=== PATIENT | female | born 1975 | race Hispanic/Latino ===

== ENCOUNTER 2021-03-12 10:27 | Emergency (ER) | payer BC ==
--- OUTSIDE RECORDS SUMMARY | 2021-03-12 10:31 | XMS REPORT | Continuity of Care Document ---
:1975 Author Organization [facility] t Address [address] [place] [address] Dr. Aquino [address] [place] [address] Care Team Providers Name Role Phone Doctor Unassigned, [place] Attending Clinician Unavailable José Luis ANN Attending Clinician Problems This patient has no known problems. Allergies, Adverse Reactions, Alerts This patient has no known allergies or adverse reactions. Medications Ordered Filled Start Stop Current Ordering Indication Dosage Frequency Signature Comments Components Source Medication Medication Date Date Medication? Clinician (SIG) Name Name Macrobid Macrobid 2019-0 2020- No Jerry [address] 08-[facility]20 [facility] Tretinoin Tretinoin Yes Jerry [address] [facility] to [facility] affected l area in Outpati the ent evening to Clinics face Lisinopril Lisinopril Yes Jerry [address] [facility] Lipitor Lipitor Yes Jerry [address] [facility] GlipiZIDE GlipiZIDE Yes Jerry [address] [facility] ER ER [facility] with [facility] - breakfast [facility] MetFORMIN MetFORMIN Yes Jerry [address] [facility] HCl ER HCl ER [facility] Levothyroxi Levothyroxi Yes Jerry take 1/[address] [facility] ne Sodium ne Sodium [facility] tablet on [facility] - an empty [facility] stomach [facility] MetFORMIN MetFORMIN Yes Jerry [address] [facility] [address] HCl ER HCl ER [facility] Procedures This patient has no known procedures. Encounters Start End Encounter Admission Attending Care Care Encounter Source Date/Time Date/Time Type Type Clinicians Facility Department ID 2021-02-28 2021-02-[address] [facility] [id number] [facility] 2021-02-18 2021-02-[address] [facility] [id number] [facility] 2021-02-13 2021-02-13 Orders Doctor RAMOS [id number] 00:00:00 00:00:00 Only Unassigned, SEAN [id number] [place] [id number] 2021-01-21 2021-01-21 [facility] Anne Marie Ordonez RUST [id number] 09:32:04 23:59:00 Encounter [place] [id number] [place] [id number] [place] [id number] 2021-01-21 2021-01-21 [facility] Anne Marie Ordonez RUST [id number] 09:31:41 09:31:41 Encounter [place] [id number] [place] [id number] [place] [id number] 2020-11-14 2020-11-14 [facility] Anne Marie Ordonez RUST [id number] 09:45:40 23:59:00 Encounter [place] [id number] [place] [id number] [place] [id number] 2020-11-14 2020-11-14 Orders Doctor RAMOS [id number] 00:00:00 00:00:00 Only Unassigned, SEAN [id number] [place] [facility] [id number] 2020-11-13 2020-11-[address] [facility] [id number] [facility]00 [facility] 2020-10-20 2020-10-20 Case Anne Marie Ordonez RUST [id number] 00:00:00 00:00:00 Management [place] [id number] [place] [id number] [place] [id number] [address] 2020-08-13 2020-08-13 [facility] [id number] 10:20:00 10:20:00 t [employer] [facility] Medicine Outpati ent Clinics 2020-05-08 2020-05-08 [facility] [id number] 10:00:00 10:00:00 t Haswell [employer] [facility] Medicine Outpati ent Clinics 2020-05-02 2020-05-02 [facility] [id number] 11:42:00 11:42:00 t Dada s Myagi [facility] Medicine Outpati ent Clinics 2020-01-30 2020-01-30 [facility] [id number] 09:30:00 09:30:00 t Dada s [employer] [facility] Medicine Outpati ent Clinics 2019-10-18 2019-10-18 [facility] [id number] 09:15:00 09:15:00 t Haswell [employer] [facility] Medicine Outpati ent Clinics 2019-09-22 2019-09-22 [facility] [id number] 15:42:00 15:42:00 t Dada s Myagi [facility] Medicine Outpati ent Clinics 2019-09-19 2019-09-19 [facility] [id number] 11:39:00 11:39:00 t Dada s Myagi [facility] Medicine Outpati ent Clinics 2019-06-22 2019-06-22 [facility] [id number] 09:00:00 09:00:00 t Haswell [employer] [facility] Medicine Outpati ent Clinics 2019-03-24 2019-03-24 [facility] [id number] 10:00:00 10:00:00 t Dada s [employer] [facility] Medicine Outpati ent Clinics 2019-01-04 2019-01-04 [facility] [id number] 09:49:00 09:49:00 t [employer] [facility] Medicine Outpati ent Clinics 2018-12-16 2018-12-16 [facility] [id number] 10:30:00 10:30:00 t [employer] [facility] Medicine Outpati ent Clinics 2018-06-16 2018-06-16 [facility] [id number] 10:00:00 10:00:00 t [employer] [facility] Medicine Outpati ent Clinics 2018-03-18 2018-03-18 [facility] [id number] 10:00:00 10:00:00 t Dada s Myagi [facility] Medicine Outpati ent Clinics Results This patient has no known results.
[2021-03-12] MEDS ORDERED: CLINDAMYCIN IV 150 MG/ML (4 mL) VIAL ONE (11:46)
[2021-03-12] MEDS ORDERED: NA CHLORIDE 0.9% 1,000 ML ONE ×2 (11:47→13:21)
[2021-03-12] MEDS ORDERED: NA CHLORIDE 0.9% 50 ML ONE (11:47)
[2021-03-12 12:05] LABS: Absolute Lymphocytes (CBC) 1.1 K/uL (0.7-4.9); Basophils % 0.3 % (0-1.3); Hematocrit 37.8 % (36.0-45.0); Lymphocytes % 12.2 % (15.3-44.8); MPV 7.7 fL (7.6-11.3); RBC Red Blood Cell Count 4.35 M/uL (3.86-4.86)
[2021-03-12 12:12] LABS: BUN Blood Urea Nitrogen 8 mg/dL (7-18); Bicarbonate 25 mmol/L (21-32); Glucose Level 205 mg/dL (74-106); Potassium 3.7 mmol/L (3.5-5.1); Sodium Level 137 mmol/L (136-145)
--- NOTE | 2021-03-12 12:26 | RAD REPORT ---
EXAM DESCRIPTION: CT - Soft Tissue Neck W/Contr - 03/12/2021 12:07 pm CLINICAL HISTORY: Facial pain;Swelling COMPARISON: No comparisons TECHNIQUE: During dynamic enhancement using 100 milliliters nonionic IV contrast, axial 5 millimeter thick images of the neck were obtained. All CT scans are performed using dose optimization technique as appropriate and may include automated exposure control or mA/KV adjustment according to patient size. FINDINGS: Intracranial portion the examination is unremarkable. No globe or orbital content abnormal ity seen. Mastoid air cells and paranasal sinuses are clear. No pharyngeal mucosal mass or asymmetry. Tonsils and tongue base tissues are within normal limits. Pa rapharyngeal fat is unremarkable. Epiglottis and vocal cords without suspicious findings. The thyroid and submandibular gland tissue show no suspicious findings. Left parotid gland is unremar kable. Right parotid gland is similar in attenuation to the right. There are 2 small enhancing masses within the gland largest 13 x 5 mm. A 12 millimeter lymph node is seen along the posterior angle of the mandible on the right. A few additional small sub centimeter cervical lymph nodes noted on the ri ght. No large mass or bulky lymphadenopathy. No acute vascular finding. Bony degenerative changes are present in the spine. There is a more prominent than typically seen for age. IMPRESSION: A few small right-sided cervical lymph nodes are present up to 13 mm in size within the soft tissues of the right-side neck is well is within the parotid gland tissues.
--- NOTE | 2021-03-12 14:46 | ER ---
Nurse's Notes [facility] Name: Cristine Rodriguez Age: 46 yrs Sex: Female : 1975 Arrival Date: 03/12/2021 Time: 10:31 Bed 27 Private MD: Jerry Bowen Diagnosis: Cellulitis of face Presentation: 03/12 10:38 Chief complaint: Patient states: R sided neck pain and swelling since Wednesday. States ll1 more lumps have popped up since yesterday. Redness to R side of face (near cheek/ear). No known fever. Sent in for eval. by Dr. Bowen. Coronavirus screen: Client denies travel out of the [place] in the last 14 days. At this time, the client does not indicate any symptoms associated with coronavirus-19. Ebola Screen: Patient denies travel to an Ebola-affected area in the 21 days before illness onset. Initial Sepsis Screen: Does the patient meet any 2 criteria? HR > 90 bpm. No. Patient's initial sepsis screen is negative. Does the patient have a suspected source of infection? Yes: Other: lymph node swelling. Risk Assessment: Do you want to hurt yourself or someone else? Patient reports no desire to harm self or others. Onset of symptoms was March 10, 2021. 10:38 Method Of Arrival: Ambulatory ll1 10:38 Acuity: SHIREEN 3 ll1 Historical: - Allergies: 10:41 No Known Allergies; ll1 - Home Meds: 11:23 metformin 500 mg Oral Tb24 2 tabs 2 times per day [Active]; glipizide 10 mg Oral tab 1 ld1 tab 2 times per day [Active]; atorvastatin 20 mg oral tab 1 tab once daily [Active]; levothyroxine 50 mcg tab 1 tab once daily [Active]; lisinopril 2.5 mg Oral tab 1 tab once daily [Active]; - PMHx: 10:41 Diabetes - NIDDM; Hypothyroidism; High Cholesterol; Hypertension; ll1 - PSHx: 10:41 Cholecystectomy; ll1 - Immunization history:: Flu vaccine is not up to date. Client reports receiving the 1st dose of the Covid vaccine, J/J 02/18. - Social history:: Smoking status: Patient denies any tobacco usage or history of. Screenin:16 Abuse screen: Denies threats or abuse. Denies injuries from another. Nutritional ld1 screening: No deficits noted. Tuberculosis screening: No symptoms or risk factors identified. Fall Risk None identified. Assessment: 11:16 General: Appears in no apparent distress. comfortable, Behavior is calm, cooperative, ld1 appropriate for age. Pain: Denies pain. Neuro: Level of Consciousness is awake, alert, obeys commands, Oriented to person, place, time, situation. Cardiovascular: Capillary refill < 3 seconds Patient's skin is warm and dry. Rhythm is regular. Respiratory: Airway is patent Respiratory effort is even, unlabored, Respiratory pattern is regular, symmetrical. GI: Abdomen is flat, non-distended. : No signs and/or symptoms were reported regarding the genitourinary system. EENT: No signs and/or symptoms were reported regarding the EENT system. Derm: Rash noted that is red, on right cheek and right jaw Reports Patient states that she developed swollen lymph nodes since Wednesday03/10/2021 and the rash developed today 03/12/2021. Musculoskeletal: No deficits noted. 12:37 Reassessment: Patient appears in no apparent distress at this time. Patient and/or iw family updated on plan of care and expected duration. Pain level reassessed. Patient is alert, oriented x 3, equal unlabored respirations, skin warm/dry/pink. Patient denies pain at this time. 13:15 Reassessment: Patient and/or family updated on plan of care and expected duration. Pain ld1 level reassessed. Patient is alert, oriented x 3, equal unlabored respirations, skin warm/dry/pink. Patient denies pain at this time. 14:08 Reassessment: Patient and/or family updated on plan of care and expected duration. Pain ld1 level reassessed. Patient is alert, oriented x 3, equal unlabored respirations, skin warm/dry/pink. Patient denies pain at this time. 15:00 Reassessment: Patient appears in no apparent distress at this time. Patient and/or ss family updated on plan of care and expected duration. Pain level reassessed. Pt verbalizes understanding importance of follow up with PCP. Vital Signs: 10:38 BP 146 / 95; Pulse 117; Resp 17; Temp 99.3; Pulse Ox 100% ; Weight 64.86 kg; Height 5 ll1 ft. 4 in. (162.56 cm); Pain 6/10; 11:16 BP 141 / 92; Pulse 119; Resp 18; Temp 99.3; Pulse Ox 100% on R/A; Weight 64.86 kg; ld1 Height 5 ft. 4 in. (162.56 cm); Pain 0/10; 13:15 BP 123 / 81; Pulse 98; Resp 18; Pulse Ox 100% on R/A; Pain 0/10; ld1 11:16 Body Mass Index 24.55 (64.86 kg, 162.56 cm) ld1 ED Course: 10:31 Patient arrived in ED. mr 10:31 Jerry Bowen DO is Private Physician. mr 10:40 Triage completed. ll1 10:42 Arm band placed on. ll1 11:05 Maria Eugenia [facility]aque[facility]C [facility] kb 11:05 Floyd Childers MD is Attending Physician. kb 11:15 Estella Benites RN is Primary Nurse. ld1 11:16 Patient has correct armband on for positive identification. Bed in low position. Call ld1 light in reach. Side rails up X 1. Door closed. Noise minimized. 11:16 No provider procedures requiring assistance completed. ld1 12:01 Lactate Sent. ld1 12:02 Inserted saline lock: 20 gauge in right antecubital area, using aseptic technique. ld1 12:02 Inserted saline lock: Blood collected. ld1 12:07 CT Soft Tissue Neck W/contr In Process Unspecified. EDMS 14:11 Lactate Sent. ld1 14:45 Jerry Bowen DO is Referral Physician. kb 15:01 IV discontinued, intact, bleeding controlled, No redness/swelling at site. Pressure ss dressing applied. Administered Medications: 11:40 Drug: Clindamycin 300 mg Route: IVPB; Infused Over: 30 mins; Site: right antecubital; ld1 12:35 Follow up: IV Status: Completed infusion iw 11:40 Drug: NS 0.9% 1000 ml Route: IV; Rate: 1000 ml; Site: right antecubital; ld1 13:15 Drug: NS 0.9% 1000 ml Route: IV; Rate: 1000 ml; Site: right antecubital; ld1 14:15 Follow up: IV Status: Completed infusion ss Outcome: 14:45 Discharge ordered by . cindy 15:01 Discharged to home ambulatory. ss 15:01 Condition: good 15:01 Discharge instructions given to patient, Instructed on discharge instructions, follow up and referral plans. Demonstrated understanding of instructions, follow-up care, medications, Prescriptions given X 2. 15:01 No charge visit due to 15:02 Patient left the ED. Signatures: Dispatcher [employer] EDMS Maria Eugenia Jaquez, [employer] MANAGER [employer]ICE-Valarie Jordy Eloisa mr Jeanette Freedman, PEMA MCADAMS Cristina De León RN RN Phil Laura RN RN ll1 Estella Benites RN RN ld1 Corrections: (The following items were deleted from the chart) 10:42 10:38 BP 146 / 95; Pulse 121bpm; Resp 17bpm; Pulse Ox 100%; Temp 99.3F; 64.86 kg; ll1 Height 5 ft. 4 in.; BMI: 24.5; Pain 6/10; ll1
--- NOTE | 2021-03-12 14:46 | EDPHYS ---
Physician Documentation [facility] Name: Cristine Rodriguez Age: 46 yrs Sex: Female : 1975 Arrival Date: 03/12/2021 Time: 10:31 Bed 27 Private MD: Graciela Bowenh ED Physician Floyd Childers HPI: 03/12 16:32 This 46 yrs old Female presents to ER via Ambulatory with complaints of Facial kb Swelling. 16:32 The patient presents with cellulitis of the right cheek and right jaw. Description: kb erythematous, swollen, warm. Onset: The symptoms/episode began/occurred 3 day(s) ago. Possible cause(s): unknown. Associated signs and symptoms: Pertinent positives: erythema, fever, swelling. Modifying factors: the symptoms are aggravated by pressure. Severity of symptoms: At their worst the symptoms were moderate, in the emergency department the symptoms are unchanged. The patient has not experienced similar symptoms in the past. The patient has not recently seen a physician. Pt reports she noticed swollen masses on right side of neck on Wednesday night. Yesterday had redness and swelling to face. Symptoms getting worse. Denies fever. Historical: - Allergies: 10:41 No Known Allergies; ll1 - Home Meds: 11:23 metformin 500 mg Oral Tb24 2 tabs 2 times per day [Active]; glipizide 10 mg Oral tab 1 ld1 tab 2 times per day [Active]; atorvastatin 20 mg oral tab 1 tab once daily [Active]; levothyroxine 50 mcg tab 1 tab once daily [Active]; lisinopril 2.5 mg Oral tab 1 tab once daily [Active]; - PMHx: 10:41 Diabetes - NIDDM; Hypothyroidism; High Cholesterol; Hypertension; ll1 - PSHx: 10:41 Cholecystectomy; ll1 - Immunization history:: Flu vaccine is not up to date. Client reports receiving the 1st dose of the Covid vaccine, J/J 02/18. - Social history:: Smoking status: Patient denies any tobacco usage or history of. ROS: 16:31 Constitutional: Negative for fever, chills, and weight loss, Cardiovascular: Negative kb for chest pain, palpitations, and edema, Respiratory: Negative for shortness of breath, cough, wheezing, and pleuritic chest pain, Abdomen/GI: Negative for abdominal pain, nausea, vomiting, diarrhea, and constipation, MS/Extremity: Negative for injury and deformity, Neuro: Negative for headache, weakness, numbness, tingling, and seizure. 16:31 Neck: Positive for swollen nodes. 16:31 Skin: Positive for erythema, swelling, of the right jaw and right cheek. Exam: 16:31 Constitutional: This is a well developed, well nourished patient who is awake, alert, kb and in no acute distress. Head/Face: Normocephalic, atraumatic. Respiratory: Respirations even and unlabored. No increased work of breathing, no retractions or nasal flaring. MS/ Extremity: Pulses equal, no cyanosis. Neurovascular intact. Full, normal range of motion. Neuro: Awake and alert, GCS 15, oriented to person, place, time, and situation. Moves all extremities. Normal gait. 16:31 Neck: Lymph nodes: lymphadenopathy is appreciated, anterior cervical nodes. 16:31 Skin: cellulitis, that is moderate, on the right jaw and right cheek. Vital Signs: 10:38 BP 146 / 95; Pulse 117; Resp 17; Temp 99.3; Pulse Ox 100% ; Weight 64.86 kg; Height 5 ll1 ft. 4 in. (162.56 cm); Pain 6/10; 11:16 BP 141 / 92; Pulse 119; Resp 18; Temp 99.3; Pulse Ox 100% on R/A; Weight 64.86 kg; ld1 Height 5 ft. 4 in. (162.56 cm); Pain 0/10; 13:15 BP 123 / 81; Pulse 98; Resp 18; Pulse Ox 100% on R/A; Pain 0/10; ld1 11:16 Body Mass Index 24.55 (64.86 kg, 162.56 cm) ld1 MDM: 11:06 Patient medically screened. kb 13:45 Data reviewed: vital signs, nurses notes, I have discussed the patient's kb presentation/case with the attending Emergency Department Physician;. Data interpreted: Pulse oximetry: on room air is 100 %. Interpretation: normal. Counseling: I had a detailed discussion with the patient and/or guardian regarding: the historical points, exam findings, and any diagnostic results supporting the discharge/admit diagnosis, lab results, radiology results, the need for outpatient follow up, a family practitioner, to return to the emergency department if symptoms worsen or persist or if there are any questions or concerns that arise at home. ED course: Discussed with ERP. He recommended repeat lactate and outpatient treatment. 03/12 11:17 Order name: CBC with Diff kb 03/12 11:17 Order name: Basic Metabolic Panel kb 03/12 11:17 Order name: Blood Culture Adult (2) kb 03/12 11:17 Order name: Lactate kb 03/12 11:17 Order name: Procalcitonin; Complete Time: 12:35 kb 03/12 11:18 Order name: CBC with Automated Diff; Complete Time: 12:09 EDMS 03/12 11:18 Order name: CT Soft Tissue Neck W/contr; Complete Time: 12:28 kb 03/12 11:18 Order name: Basic Metabolic Panel; Complete Time: 12:14 EDMS 03/12 11:18 Order name: Blood Culture EDMS 03/12 11:18 Order name: Lactate; Complete Time: 12:21 EDMS 03/12 13:45 Order name: Lactate kb 03/12 14:30 Order name: CREATININE WHOLE BLOOD; Complete Time: 14:31 EDMS 03/12 11:17 Order name: IV Start; Complete Time: 12:06 kb Administered Medications: 11:40 Drug: Clindamycin 300 mg Route: IVPB; Infused Over: 30 mins; Site: right antecubital; ld1 12:35 Follow up: IV Status: Completed infusion iw 11:40 Drug: NS 0.9% 1000 ml Route: IV; Rate: 1000 ml; Site: right antecubital; ld1 13:15 Drug: NS 0.9% 1000 ml Route: IV; Rate: 1000 ml; Site: right antecubital; ld1 14:15 Follow up: IV Status: Completed infusion ss Disposition: 03/13 07:30 Co-signature as Attending Physician, Floyd Childers MD I agree with the assessment and kdr plan of care. Disposition: 03/12/21 14:45 Discharged to Home. Impression: Cellulitis of face. - Condition is Stable. - Discharge Instructions: Cellulitis, Adult, [id number]. - Prescriptions for Clindamycin HCl 300 mg Oral Capsule - take 1 capsule by ORAL route every 6 hours for 10 days; 40 capsule. Doxycycline Hyclate 100 mg Oral Tablet - take 1 tablet by ORAL route every 12 hours; 20 tablet. - Medication Reconciliation Form, Thank You Letter, Antibiotic Education, Prescription Opioid Use form. - Follow up: Emergency Department; When: As needed; Reason: Worsening of condition. Follow up: Jerry Bowen; When: 2 - 3 days; Reason: Recheck today's complaints, Continuance of care, Re-evaluation by your physician. Signatures: Dispatcher [employer] EDPA Maria Eugenia Jaquez, MIND READER-C MIND READER-Floyd Rogers MD MD [facility] Cristina De León RN RN ss Phil Maldonado RN RN ll1 Estella Benites RN RN ld1 Jeanette Freedman RN iw Corrections: (The following items were deleted from the chart) 03/12 15:02 14:45 03/12/2021 14:45 Discharged to Home. Impression: Cellulitis of face. Condition is ss Stable. Discharge Instructions: Cellulitis, Adult, [id number]. Prescriptions for Clindamycin HCl 300 mg Oral Capsule - take 1 capsule by ORAL route every 6 hours for 10 days; 40 capsule, Doxycycline Hyclate 100 mg Oral Tablet - take 1 tablet by ORAL route every 12 hours; 20 tablet. and Forms are Medication Reconciliation Form, Thank You Letter, Antibiotic Education, Prescription Opioid Use. Follow up: Emergency Department; When: As needed; Reason: Worsening of condition. Follow up: Jerry Bowen; When: 2 - 3 days; Reason: Recheck today's complaints, Continuance of care, Re-evaluation by your physician. kb
[2021-03-12 15:10] VITALS: TEMP 99.3; O2SAT 100
[2021-03-12 15:13] VITALS: BP 123/81
== END 2021-03-12 15:02 | disposition home or self-care (01) ==
LOC: ER 10:27
DX: L03.211 Cellulitis of face (principal); I10 Essential (primary) hypertension; E11.9 Type 2 diabetes mellitus without complications; E03.9 Hypothyroidism, unspecified; E78.00 Pure hypercholesterolemia, unspecified
CPT/HCPCS: 96365; 96361; 87040 ×2; 85025; 80048; 36415; 82565; 83605 ×2; 84145; 70491; Q9967; S0077; J7030 ×2